=== PATIENT | female | born 1980 | race American Indian/Alaskan Native ===

== ENCOUNTER 2024-07-20 09:23 | Day surgery (SDC) | payer BC, OTHER ==
[~2024-07-20] VITALS: Ht 162.6 cm; Wt 85.0 kg
[~2024-07-20 09:23] MED LIST: FLUTICASONE PRO16 GM NAS; IBLOOD GLUCOSE TEST STRIP 1 EA TEST VI PRN; LACTATED RINGER'S 1,000 ML IV SCH; LIDOCAINE HCL 1% 5 ML SDV INJ ONE; MIDAZOLAM HCL 5 MG/5 ML VIAL IV PRN; MIDAZOLAM HCL 5 MG/5 ML VIAL ONE; MULTI VITAMIN1 EACH PO; VALACYCLOVIR1000 MG PO; fentaNYL citrate 100 MCG/2 ML VIAL IV PRN; fentaNYL citrate 100 MCG/2 ML VIAL ONE
[2024-07-20 09:41] VITALS: BP 128/82
--- NOTE | 2024-07-20 09:50 | NUR ---
NILTON WAITING MAY BE WALKING AROUND.
--- NOTE | 2024-07-20 11:09 | NUR ---
07/20/24 Meagna9 Vidhya Goncalves 1106-PATIENT ARRIVED TO PACU ON RA RR EVEN. PATIENT AWAKE DENIES PAIN OR NAUSEA. HOB ELEVATED. ABDOMEN SOFT. ENCOURAGED TO PASS GAS. IVF INFUSING. PATIENT ORIENTED TO PACU. DOZES TO SLEEP
[2024-07-20 11:44] VITALS: BP 127/82
--- NOTE | 2024-07-22 14:25 | PATH ---
[facility] [address] [place], [place] [address] Signed SPECIMEN(S): A SIGMOID POLYP SPECIMEN SOURCE: A. SIGMOID POLYP CLINICAL HISTORY: Colon screening, diverticulosis FINAL PATHOLOGIC DIAGNOSIS: Colon, sigmoid, polypectomy: - Colonic mucosa with no significant pathologic changes BRP MICROSCOPIC EXAMINATION: Histologic sections of all submitted blocks are examined by light microscopy. These findings, together with the gross examination, support the pathologic diagnosis. GROSS DESCRIPTION: The specimen, labeled and designated "Alfred, sigmoid polyp," is received in formalin and consists of two carey soft tissue fragments, ranging from 0.2-0.3 cm. Entirely submitted in (A1). VB (under the direct supervision of a pathologist) The Gross Description was prepared using a voice recognition system. The report was reviewed for accuracy; however, sound-alike word errors, addition and/or deletions may occur. If there is any question about this report, please contact Client Services. ADDITIONAL NOTES: Immunohistochemical and/or in situ hybridization studies if performed in this case included appropriate positive controls that reacted as expected. This test was developed and its performance characteristics determined by [facility]. It has not been cleared or approved by the U.S. Food and Drug Administration. The FDA has determined that such clearance or approval is not necessary. This test is used for clinical purposes. It should not be regarded as investigational or for research. [facility] is certified under the Clinical Laboratory Improvement Amendments of 1988 (CLIA) as qualified to perform high complexity clinical laboratory testing. PATIENT NAME: SHELLEY HSU PATHOLOGY DATE OF : 76 REPORT #: [id number] PHYSICIAN: BENNETT SAUCEDO PCP: BRIDGET PALOMO MD REPORT IS CONFIDENTIAL AND NOT TO BE RELEASED WITHOUT AUTHORIZATION [facility] [address] [place], [place] [address] Signed PERFORMING LABORATORY: Technical component was performed by [facility], [address] [place] [address] (CLIA# [id number]). Professional interpretation was performed by [facility], [address] [place] [address] (CLIA#: [id number]). Diagnostician: Bishnu Worrell MD Pathologist Electronically Signed 07/22/2024 Copies: ~ PATIENT NAME: SHELLEY HSU PATHOLOGY DATE OF : 76 REPORT #: [id number] PHYSICIAN: BENNETT SAUCEDO PCP: BRIDGET PALOMO MD REPORT IS CONFIDENTIAL AND NOT TO BE RELEASED WITHOUT AUTHORIZATION
--- NOTE | 2024-07-25 14:27 | OR ---
[facility] [address] [place], [place] [address] Signed DATE OF OPERATION: 07/20/2024 SURGEON: Jh Davenport MD PREOPERATIVE DIAGNOSIS: Colon screening. POSTOPERATIVE DIAGNOSIS: Small polyps in the proximal sigmoid colon and minimal diverticula. PROCEDURE: Total colonoscopy to cecum with cold morcellation polypectomy x1. ANESTHESIA: Intravenous sedation; fentanyl 100 mcg and Versed 5 mg. INDICATION: This 43-year-old [place] woman is a patient of Dr. Bridget Lucia of the [facility]. She has never had colonoscopy in the past. She is admitted at this time to undergo colonoscopy for screening. She understands the risk of bleeding, infection, and perforation. She has no symptoms and no family history of colon cancer. She understands risk of bleeding, infection, and perforation related to colonoscopy and wished to proceed. FINDINGS: Prep was good. Complete colonoscopy was undertaken to the cecum without question. She had minimal finding of diverticula of the sigmoid and one very small polyp of the sigmoid, which was excised with cold morcellation technique. There were no other findings of note. PROCEDURE IN DETAIL: The patient was brought to the endoscopy suite and placed in the lateral decubitus position, given intravenous sedation to the point of slurred speech and nystagmus. Digital rectal examination was normal. An Olympus video colonoscope was passed in the rectum and manipulated throughout the colon ultimately intubating the cecum itself. The ileocecal valve and appendiceal orifice were normal. The scope was withdrawn from that point and examination showed no sign of abnormality until the proximal sigmoid where a small polyp was noted. Narrow-band imaging confirmed this likely to be adenomatous. It was excised with cold morcellation technique. The scope was further withdrawn. In the few scattered diverticula of the sigmoid but no other findings of note. Retroflexed Electronically Signed By: JH DAVENPORT MD 07/25/24 1427 PATIENT NAME: SHELLEY HSU OPERATIVE REPORT DATE OF : 76 REPORT #: [id number] PHYSICIAN: JH DAVENPORT MD PCP: BRIDGET LUCIA MD REPORT IS CONFIDENTIAL AND NOT TO BE RELEASED WITHOUT AUTHORIZATION [facility] [address] [place], [place] [address] Signed view of the rectum was normal. Scope was removed and the patient was taken to the recovery room in good condition. CONCLUDING DIAGNOSIS: Polyp of proximal sigmoid. PLAN: Recommend repeat colonoscopy in 5 to 7 years based on current guidelines. A colonoscopy can be performed sooner should the need arise. She will return to the ongoing care of Dr. Bridget Lucia. MD ALESSANDRO Bran/NETTAL /[id number] cc: Bridget Lucia MD Copies: BRIDGET LUCIA MD ~ Electronically Signed By: JH DAVENPORT MD 07/25/24 1427 PATIENT NAME: SHELLEY HSU OPERATIVE REPORT DATE OF : 76 REPORT #: [id number] PHYSICIAN: JH DAVENPORT MD PCP: BRIDGET LUCIA MD REPORT IS CONFIDENTIAL AND NOT TO BE RELEASED WITHOUT AUTHORIZATION
== END 2024-07-20 11:56 | disposition home or self-care (01) ==
LOC: OPS 09:23 → DS 09:24 → OPS 10:30 → DS 10:30 → OPS 11:56 → DS 14:00
PROVIDERS: ATTEND Surgery
PROC: 0DBN8ZZ Excision of Sigmoid Colon, Via Natural or Artificial Opening Endoscopic (ICD-10-PCS; principal; 2024-07-20 10:30)
DX: Z12.11 Encounter for screening for malignant neoplasm of colon (principal); K63.5 Polyp of colon; K57.30 Diverticulosis of large intestine without perforation or abscess without bleeding
CPT/HCPCS: 84703; 99153; G0500; J2250; J3010; J7121